=== PATIENT | male | born 1960 | race Caucasian/White ===

== ENCOUNTER 2018-04-12 13:53 | Emergency (ER) | payer SELFPAY ==
--- NOTE | 2018-04-12 15:36 | RAD ---
SOFT TISSUE NECK TWO VIEWS: 04/12/18 HISTORY: 58-year-old male with history of bolus food impacted. Anterior cervical fusion changes at C6-7. The epiglottis appears unremarkable. No evidence for prever tebral soft tissue swelling. No evidence for metal foreign body. Minimal carotid artery vascular calc ifications. IMPRESSION: C6-C7 anterior cervical fusion changes. Extensive spondylosis with disc osteophytosis and facet arthr osis. No retropharyngeal mass. Unremarkable appearing epiglottis. No evidence for foreign body. POS: LOBO
== END 2018-04-12 15:49 | disposition short-term general hospital (02) ==
LOC: MADERS 13:53
DX: T18.128A Food in esophagus causing other injury, initial encounter (principal); Z87.891 Personal history of nicotine dependence
CPT/HCPCS: 70360; 96374; J1610

== ENCOUNTER 2018-07-02 18:39 | Emergency (ER) | payer SELFPAY | END 2018-07-02 19:09 | disposition home or self-care (01) | LOC: MADERS 18:39 | DX: T17.228A Food in pharynx causing other injury, initial encounter (principal); Z87.891 Personal history of nicotine dependence | CPT/HCPCS: 99283 ==

== ENCOUNTER 2019-07-19 14:43 | Emergency (ER) | payer SELFPAY ==
[2019-07-19 15:51] LABS: ALT (SGPT) 64 U/L (8-55); AST (SGOT) 100 U/L (5-34); Albumin 4.1 g/dL (3.5-5.0); Alkaline Phosphatase 72 U/L (40-110); Anion Gap 25 mmol/L (10-20); BUN (Urea Nitrogen) 8 mg/dL (8.4-25.7); Bilirubin, Total 0.8 mg/dL (0.2-1.2); Calc. Creatinine Clearance 0 mL/min (70-130); Calcium 8.8 mg/dL (7.8-10.44); Carbon Dioxide 18 mmol/L (22-29); Chloride 97 mmol/L (98-107); Estimated GFR-MDRD Greater than 90; Globulin 3.9 g/dL (2.4-3.5); Glucose 128 mg/dL (70-105); Potassium 3.8 mmol/L (3.5-5.1); Sodium 136 mmol/L (136-145)
[2019-07-19 15:58] LABS: #Basophils 0.1 thou/uL (0.0-0.2); #Lymphocytes 0.8 thou/uL (1.20-3.40); #Monocytes 0.6 thou/uL (0.11-0.59); #Neutrophils 2.5 thou/uL (1.40-6.50); %Basophils 1.4 % (0.0-1.0); %Eosinophils 1.1 % (0.0-10.0); %Lymphocytes 20.4 % (21.0-51.0); %Monocytes 14.7 % (0.0-10.0); %Neutrophils 62.4 % (42.0-75.0); Hemoglobin 14.1 g/dL (14.0-18.0); Mean Corpuscular HGB CONC 31.8 g/dL (32.0-36.0); Mean Corpuscular Hemoglobin 31.4 pg (27.0-31.0); Mean Corpuscular Volume 98.7 fL (78.0-98.0); Mean Platelet Volume 7.3 fL (7.4-10.4); Platelet Count 88 thou/uL (130-400); Platelet Morphology Comment Appears Decreased; RBC Distribution Width 11.5 % (11.5-14.5); Red Blood Cell (RBC) Count 4.51 mill/uL (4.70-6.10)
[2019-07-19] MEDS ORDERED: Fosphenytoin Sodium 500 mg/10 ml Vial ONE (16:13)
[2019-07-19] MEDS ORDERED: Sodium Chloride 0.9% 1,000 ML ONE (16:13)
[2019-07-19] MEDS ORDERED: Sodium Chloride 0.9% 100 ML ONE (16:14)
[2019-07-19 16:19] LABS: Bilirubin Negative (Negative); Blood, Urine Small (Negative); Clarity Clear (Clear); Glucose, Urine (Dipstick) Negative (Negative); Leukocyte Negative (Negative); Nitrite Negative (Negative); Protein, Urine (Dipstick) 30 mg/dL (Neg-Trace)
[2019-07-19 16:26] LABS: Bacteria/HPF Rare-Few HPF (None Seen); Squamous Epithelial 0-3 HPF (0-3); WBC/HPF None Seen HPF (0-3)
[2019-07-19 16:27] LABS: Amphetamine Not Detected (NotDetected); Barbiturates Screen Detected (NotDetected); Benzodiazepine Screen Not Detected (NotDetected); Cocaine Metabolite Screen Not Detected (NotDetected); Medtox Control Line Valid? VALID (VALID); Methadone Not Detected (NotDetected); Methamphetamine Not Detected (NotDetected); Opiate Screen Not Detected (NotDetected); Oxycodone Screen Not Detected (NotDetected); Phencyclidine (PCP) Not Detected (NotDetected); THC/Cannabinoid Screen Detected (NotDetected); Tricyclic Screen Not Detected (NotDetected)
[2019-07-19 16:32] LABS: Acetaminophen Less than 6.0 mcg/mL (10.0-30.0); Alcohol Less than 10 mg/dL (Less than 10); Salicylate Less than 8.0 mg/dL (15.0-30.0)
[2019-07-19] MEDS ORDERED: Diazepam 5 MG TAB ONE (17:48)
--- NOTE | 2019-07-19 17:51 | CT ---
Head CT without contrast 07/19/2019: Comparison: None HISTORY: Seizure TECHNIQUE: Axial CT imaging at 5 mm intervals from vertex through skull base without contrast FINDINGS: There is partial opacification of bilateral ethmoid air cells and maxillary sinuses. No dis placed calvarial fracture. No intracranial hemorrhage, midline shift, or mass effect. Mild motion artifact limits assessment of the posterior fossa and skull base. IMPRESSION: No intracranial hemorrhage.
== END 2019-07-19 19:10 | disposition short-term general hospital (02) ==
LOC: MADERS 14:43
DX: G40.909 Epilepsy, unspecified, not intractable, without status epilepticus (principal); F10.239 Alcohol dependence with withdrawal, unspecified; Z87.891 Personal history of nicotine dependence
CPT/HCPCS: 36415; 70450; 80053; 80306; 80307; 81003; 81015; 83735; 85025; 96361; 96365; J3490; J7050; Q2009